=== PATIENT | female | born 1945 | race Caucasian/White ===

== ENCOUNTER 2019-05-16 23:35 | Emergency (ER) | payer OTHER, BC ==
[2019-05-16 23:50] VITALS: PULSE 79; TEMP 97.9; BMI 40.3
--- NOTE | 2019-05-17 00:07 | PDOC ---
Attending Attestation - Resident Resident Name: GumeWilliam mckenna - ED Attending Attestation I have performed the following: I have examined & evaluated the patient, The case was reviewed & discussed with the resident, I agree w/resident's findings & plan - HPI HPI: 05/17/19 01:06 see resident hpi - Physicial Exam PE: 05/17/19 01:06 agree with resident exam - Medical Decision Making 05/17/19 01:06 73-year-old female with bleeding from a left posterior calf varicose vein currently on Effient Bleeding rapidly controlled with Surgicel and Coban wrap Patient neurovascularly intact with palpable distal pulses post wound care Patient denies specific complaints at this time She is somewhat tired because she took Ativan prior to the incident which she normally does before bed She will be discharged in the care of family and will be sleeping at their house this evening Patient escorted to her car, all parties were given fall precautions Patient has agreed to follow-up with her regular physician in the next 1 to 2 days for CBC which he preferred not to wait for any emergency department. Blood pressure stable prior to discharge.
--- NOTE | 2019-05-17 00:42 | PDOC ---
History of Present Illness - General Chief Complaint: Laceration Stated Complaint: BLEEDING Time Seen by Provider: 05/17/19 00:07 History Source: Patient Exam Limitations: No Limitations - History of Present Illness Initial Comments: 05/17/19 00:52 73 yo female pmh angina (on antiplatelet medication) and varicose veins presents to the ED via EMS for bleeding varicose veins. Pt states she was itching her leg tonight and had excessive bleeding. Pt admitted Past History - Past Medical History Allergies/Adverse Reactions: Allergies Allergy/AdvReac Type Severity Reaction Status Date / Time clopidogrel bisulfate Allergy Verified 05/16/19 23:46 [From Plavix] Penicillins Allergy Verified 05/16/19 23:46 iv contrast Allergy Uncoded 05/16/19 23:46 Home Medications: Ambulatory Orders Amlodipine Besylate [Norvasc -] 10 mg PO DAILY 01/19/13 Aspirin 81 mg PO DAILY 01/19/13 Atorvastatin Calcium [Lipitor] 40 mg PO DAILY 01/19/13 Citalopram Hydrobromide [Celexa] 20 mg PO DAILY 01/19/13 Hydrochlorothiazide [Hctz -] 25 mg PO DAILY 01/19/13 Isosorbide Mononitrate 120 mg PO DAILY 01/19/13 Levothyroxine [Synthroid] 175 mcg PO DAILY 01/19/13 Liraglutide [Victoza] 1.2 mg SQ DAILY@0700 01/19/13 Losartan Potassium 50 mg PO DAILY 01/19/13 Metoprolol Tartrate [Lopressor] 50 mg PO DAILY 01/19/13 Montelukast Na [Singulair] 10 mg PO HS 01/19/13 Prasugrel Hydrochloride [Effient] 10 mg PO DAILY 01/19/13 Zolpidem Tartrate [Ambien] 5 mg PO HS 01/19/13 Cardiac Disorders: Yes (angina) COPD: Yes Diabetes: Yes HTN: Yes Thyroid Disease: Yes - Surgical History Appendectomy: Yes Cardiac Surgery: Yes (8 cardiac stents) GI Surgery: Yes (farrukh) - Psycho Social/Smoking Cessation Hx Smoking Status: Yes Smoking History: Never smoked Number of Cigarettes Smoked Daily: 0 *Physical Exam - Vital Signs Last Vital Signs Temp Pulse Resp BP Pulse Ox 97.9 F 79 16 110/71 99 05/16/19 23:47 05/16/19 23:47 05/16/19 23:47 05/16/19 23:47 05/16/19 23:47 Discharge - Discharge Information Problems reviewed: Yes Clinical Impression/Diagnosis: Bleeding from varicose vein Condition: Stable Disposition: HOME - Admission No - Follow up/Referral Referrals: Anh Torres [Primary Care Provider] - Brennan Castro DO [Staff Physician] - - Patient Discharge Instructions Patient Printed Discharge Instructions: DI for Laceration Repair Additional Instructions: Please se your Primary Doctor tomorrow morning and have blood work to assess for possible anemia as soon as possible. Do not take any more anti platelet medicine until you see your doctors and discuss it with them. Return to the ER for new or concerning symptoms including but not limited to: weakness, dizziness , continued bleeding, loss of strength or sensation to the rigt lower leg. Thank you - Post Discharge Activity
[2019-05-17 00:52] VITALS: BP 132/69
== END 2019-05-17 00:52 | disposition home or self-care (01) ==
LOC: JER 23:35
PROC: 0HQKXZZ Repair Right Lower Leg Skin, External Approach (ICD-10-PCS; principal; 2019-05-16)
DX: I86.8 Varicose veins of other specified sites (principal); I20.9 Angina pectoris, unspecified; Z88.0 Allergy status to penicillin; Z88.8 Allergy status to other drugs, medicaments and biological substances; Z91.041 Radiographic dye allergy status; J44.9 Chronic obstructive pulmonary disease, unspecified; E11.9 Type 2 diabetes mellitus without complications; I10 Essential (primary) hypertension; E07.9 Disorder of thyroid, unspecified; Z95.5 Presence of coronary angioplasty implant and graft
CPT/HCPCS: 99282-25

== ENCOUNTER 2020-04-28 14:22 | Emergency (ER) | payer OTHER, BC | END 2020-04-28 15:17 | disposition home or self-care (01) | LOC: JVIRT 14:22 | DX: Z03.818 Encounter for observation for suspected exposure to other biological agents ruled out (principal); G44.89 Other headache syndrome; R11.0 Nausea | CPT/HCPCS: C9803; Q3014-GT; U0003 ==

== ENCOUNTER 2023-02-02 14:57 | Inpatient (IN) | payer OTHER, BC ==
[2023-02-02 15:13] VITALS: BMI 38.0
[2023-02-02] MEDS ORDERED: ACETAMINOPHEN 500 MG TABLET (FP) PO ONE (16:06)
[2023-02-02] MEDS ORDERED: ACETAMINOPHEN 325 MG TABLET (FP) ONE (16:36)
[2023-02-02 17:12] LABS: BASO % 0.1 % (0-2.0); EOS % 1.8 % (0-4.5); HEMATOCRIT 37.5 % (32.4-45.2); HEMOGLOBIN 12.4 GM/dL (10.7-15.3); LYMPH % 19.2 % (8-40); MCH 28.2 pg (25.7-33.7); MCHC 33.2 g/dl (32.0-36.0); MEAN CELL VOLUME 84.9 fl (80-96); MEAN PLT VOLUME 8.4 fl (7.5-11.1); MONO % 12.5 % (3.8-10.2); NEUT % 66.4 % (42.8-82.8); PLATELET COUNT 185 10^3/uL (134-434); RBC 4.41 M/mm3 (3.60-5.2); RDW 14.5 % (11.6-15.6)
[2023-02-02] MEDS ORDERED: ASPIRIN 81 MG CHEWABLE TABLETS PO ONE (17:24)
[2023-02-02 17:25] LABS: INR 1.19 (0.83-1.09); PROTHROMBIN TIME (PATIENT) 13.8 SEC (9.7-13.0)
[2023-02-02 17:27] LABS: ACTIVATED PTT 36.8 SECONDS (25.2-36.5)
[2023-02-02] MEDS ORDERED: ASPIRIN 81 MG CHEWABLE TABLETS ONE (17:27)
[2023-02-02 17:33] LABS: POTASSIUM 3.7 mmol/L (3.5-5.1)
[2023-02-02 17:35] LABS: ALBUMIN 3.2 g/dl (3.4-5.0); CALCIUM 8.4 mg/dL (8.5-10.1); MAGNESIUM 1.6 mg/dL (1.8-2.4)
[2023-02-02 17:38] LABS: CREATININE 1.1 mg/dL (0.55-1.3)
[2023-02-02 17:40] LABS: BILIRUBIN,TOTAL 0.9 mg/dL (0.2-1); TOT PROT 6.4 g/dl (6.4-8.2)
[2023-02-02 17:50] LABS: URINE APPEARANCE CLEAR; URINE BILIRUBIN NEGATIVE (NEGATIVE); URINE COLOR YELLOW; URINE GLUCOSE (UA) NEGATIVE (NEGATIVE); URINE KETONE NEGATIVE (NEGATIVE); URINE LEUK ESTERASE NEGATIVE (NEGATIVE); URINE NITRITE NEGATIVE (NEGATIVE); URINE PROTEIN NEGATIVE (NEGATIVE)
[2023-02-02] MEDS ORDERED: MAGNESIUM SULFATE IN WATER 2 GM/50 ML IVPB IVPB ONE ×2 (18:25→19:55)
[2023-02-02] MEDS ORDERED: POTASSIUM CHLORIDE TABS 20 MEQ TABLET.ER (FP) PO ONE (18:30)
[2023-02-02] MEDS ORDERED: methylPREDNISolone NA SUCC 125 MG/2 ML VIAL IVPUSH ONE (18:46)
[2023-02-02] MEDS ORDERED: FAMOTIDINE 20 MG/50 ML IVPB 20 MG/50 ML MG IVPB ONE ×2 (18:47→19:54)
[2023-02-02] MEDS ORDERED: methylPREDNISolone NA SUCC 125 MG/2 ML VIAL ONE (18:49)
[2023-02-02] MEDS ORDERED: POTASSIUM CHLORIDE ORAL LIQUID 20 MEQ/15 ML ONE (19:54)
[2023-02-02] MEDS ORDERED: MAGNESIUM 1GM/D5W - 1 GM/100 ML IVPB IVPB ONE (19:54)
[2023-02-02] MEDS ORDERED: LORazepam 0.5 MG TABLET PO PRN (21:43)
[2023-02-02] MEDS ORDERED: NITROGLYCERIN SUBLINGUAL 1/150 0.4 MG TAB SL PRN (21:43)
[2023-02-02] MEDS ORDERED: ERTAPENEM SODIUM 1 GM in SODIUM CHLORIDE 50 ML IVPB SCH (22:00)
[2023-02-02] MEDS ORDERED: SULFAMETHOXAZOLE 80 MG/TRIMETHOPRIM 16 MG/ML VIAL IVPB SCH (22:00)
[2023-02-02] MEDS ORDERED: ZOLPIDEM TARTRATE 5 MG TABLET PO PRN (22:00)
[2023-02-02] MEDS ORDERED: RANOLAZINE E.R. 500 MG TABLET (FP) ONE (23:17)
[2023-02-02] MEDS: INSULIN SLIDING SCALE (NOVOLOG) 1 VIAL SQ SCH (23:26)
[2023-02-02] MEDS: RANOLAZINE E.R. 500 MG TABLET (FP) PO SCH (23:26)
[2023-02-03] MEDS ORDERED: LEVOTHYROXINE NA 75 MCG TABLET (FP) ONE (06:40)
[2023-02-03] MEDS: LEVOTHYROXINE 100 MCG, LEVOTHYROXINE 75 MCG PO SCH (06:46)
[2023-02-03] MEDS: INSULIN SLIDING SCALE (NOVOLOG) 1 VIAL SQ SCH ×4 (06:46→22:19)
[2023-02-03 08:45] LABS: BASO % 0.1 % (0-2.0); HEMATOCRIT 39.8 % (32.4-45.2); HEMOGLOBIN 13.6 GM/dL (10.7-15.3); LYMPH % 9.8 % (8-40); MCH 28.7 pg (25.7-33.7); MCHC 34.2 g/dl (32.0-36.0); MEAN PLT VOLUME 8.3 fl (7.5-11.1); MONO % 1.3 % (3.8-10.2); NEUT % 88.8 % (42.8-82.8); PLATELET COUNT 187 10^3/uL (134-434); RBC 4.74 M/mm3 (3.60-5.2); RDW 14.8 % (11.6-15.6); WHITE BLOOD COUNT 7.3 K/mm3 (4.0-10.0)
[2023-02-03 09:04] LABS: POTASSIUM 4.1 mmol/L (3.5-5.1)
[2023-02-03 09:08] LABS: MAGNESIUM 1.9 mg/dL (1.8-2.4)
[2023-02-03 09:11] LABS: ALBUMIN 3.4 g/dl (3.4-5.0); BLOOD UREA NITROGEN 16.7 mg/dL (7-18); CREATININE 1.3 mg/dL (0.55-1.3)
[2023-02-03 09:12] LABS: BILIRUBIN,TOTAL 0.8 mg/dL (0.2-1)
[2023-02-03 09:13] LABS: PHOSPHOROUS 2.5 mg/dL (2.5-4.9)
[2023-02-03] MEDS: CHOLECALCIFEROL (VIT D3) 1,000 UNIT (25 MCG) TABLET PO SCH (09:23)
[2023-02-03] MEDS: ISOSORBIDE MONONITRATE 60 MG TAB.SR.24H (FP) PO SCH ×2 (09:23→22:14)
[2023-02-03] MEDS: ASPIRIN 81 MG CHEWABLE TABLETS PO SCH (09:23)
[2023-02-03] MEDS: PRASUGREL HCL 10 MG TAB PO SCH (09:24)
[2023-02-03] MEDS: DULoxetine HCL 30 MG CAPSULE.DR PO SCH (09:24)
[2023-02-03] MEDS: ENOXAPARIN NA (PORCINE) 40 MG/0.4 ML DISP.SYRIN SQ SCH (09:25)
[2023-02-03] MEDS: RANOLAZINE E.R. 500 MG TABLET (FP) PO SCH ×2 (09:25→22:14)
[2023-02-03] MEDS ORDERED: REGADENOSON 0.4 MG/5 ML PRE-FILLED SYRINGE IVPUSH ONE ×2 (09:45→11:51)
[2023-02-03] MEDS ORDERED: PATIENT'S OWN MEDICATION (NON-FORMULARY) (Levothyroxine [Synthroid -] 175 MCG Tablet) PO SCH (10:00)
[2023-02-03] MEDS ORDERED: ATORVASTATIN CA 80 MG TABLET (FP) PO SCH (10:00)
[2023-02-03] MEDS ORDERED: PATIENT'S OWN MEDICATION (NON-FORMULARY) (Dulaglutide [Trulicity] 1.5 MG/0.5 ML Pen.Injctr SQ SCH (10:00)
[2023-02-03] MEDS: POTASSIUM CHLORIDE TABS 10 MEQ TABLET.ER (FP) PO SCH (11:14)
[2023-02-03] MEDS ORDERED: NITROGLYCERIN SUBLINGUAL 1/150 0.4 MG TAB SL ONE (12:20)
[2023-02-03] MEDS ORDERED: NITROGLYCERIN SUBLINGUAL 1/150 0.4 MG TAB ONE ×2 (12:25→13:07)
[2023-02-03] MEDS: CEFTRIAXONE 1 GM in DEXTROSE 5%-WATER - 50 ML IVPB SCH (13:54)
[2023-02-03] MEDS: ATORVASTATIN CA 80 MG TABLET (FP) PO SCH (22:14)
[2023-02-03] MEDS: metoPROLOL SUCCINATE 25 MG TAB.SR.24H (FP) PO SCH (22:14)
[2023-02-04] MEDS: LEVOTHYROXINE 100 MCG, LEVOTHYROXINE 75 MCG PO SCH (06:05)
[2023-02-04] MEDS: INSULIN SLIDING SCALE (NOVOLOG) 1 VIAL SQ SCH ×4 (06:05→21:30)
[2023-02-04] MEDS: DULoxetine HCL 30 MG CAPSULE.DR PO SCH (10:05)
[2023-02-04] MEDS: ASPIRIN 81 MG CHEWABLE TABLETS PO SCH (10:05)
[2023-02-04] MEDS: metoPROLOL SUCCINATE 25 MG TAB.SR.24H (FP) PO SCH ×2 (10:05→21:32)
[2023-02-04] MEDS: RANOLAZINE E.R. 500 MG TABLET (FP) PO SCH ×2 (10:05→21:31)
[2023-02-04] MEDS: PRASUGREL HCL 10 MG TAB PO SCH (10:06)
[2023-02-04] MEDS: ISOSORBIDE MONONITRATE 60 MG TAB.SR.24H (FP) PO SCH ×2 (10:06→21:31)
[2023-02-04] MEDS: CHOLECALCIFEROL (VIT D3) 1,000 UNIT (25 MCG) TABLET PO SCH (10:06)
[2023-02-04] MEDS: POTASSIUM CHLORIDE TABS 10 MEQ TABLET.ER (FP) PO SCH (10:06)
[2023-02-04] MEDS: CEFTRIAXONE 1 GM in DEXTROSE 5%-WATER - 50 ML IVPB SCH (10:06)
[2023-02-04] MEDS: ENOXAPARIN NA (PORCINE) 40 MG/0.4 ML DISP.SYRIN SQ SCH (10:07)
[2023-02-04 20:21] VITALS: BP 123/69; PULSE 69; RESP 16; TEMP 97.5
[2023-02-04] MEDS: ATORVASTATIN CA 80 MG TABLET (FP) PO SCH (21:31)
[2023-02-04] MEDS ORDERED: HEPARIN NA (PORCINE) 5,000 UNITS/ML 1ML VIAL SQ SCH (22:00)
== END 2023-02-04 22:30 | disposition short-term general hospital (02) | DRG 313 ==
LOC: JER 14:57 → JERBED 19:55 → J4S 02-03 00:31
PROVIDERS: ADMIT Internal Medicine; ATTEND Internal Medicine
DX: R07.89 Other chest pain (principal); K57.32 Diverticulitis of large intestine without perforation or abscess without bleeding; I25.110 Atherosclerotic heart disease of native coronary artery with unstable angina pectoris; I10 Essential (primary) hypertension; E11.9 Type 2 diabetes mellitus without complications; E03.9 Hypothyroidism, unspecified; E78.5 Hyperlipidemia, unspecified; E83.42 Hypomagnesemia; E66.9 Obesity, unspecified; Z68.38 Body mass index [BMI] 38.0-38.9, adult; F41.9 Anxiety disorder, unspecified; Z88.0 Allergy status to penicillin; Z96.653 Presence of artificial knee joint, bilateral; Z95.5 Presence of coronary angioplasty implant and graft
CPT/HCPCS: 0241U-QW; 36415; 71045-TC-FY; 71275-TC; 74174-TC; 78452-TC; 80053; 80061; 81003; 82962; 83605; 83735; 84100; 84443; 84484; 85025; 85610; 85730; 87086; 93005; 93010; 93017; 99285-25; A9502; J1644; J2785; Q9967

== ENCOUNTER 2023-03-31 16:08 | Emergency (ER) | payer OTHER, BC ==
[2023-03-31 16:21] VITALS: RESP 22; TEMP 97.9; BMI 37.4
[2023-03-31] MEDS ORDERED: ONDANSETRON 4 MG/2 ML VIAL IVPUSH ONE (17:13)
[2023-03-31] MEDS ORDERED: ACETAMINOPHEN 1000 MG/100 ML BAG IVPB ONE (17:14)
[2023-03-31] MEDS ORDERED: ONDANSETRON 4 MG/2 ML VIAL ONE (17:38)
[2023-03-31] MEDS ORDERED: ACETAMINOPHEN INJECTION 100 ML IVPB ONE (17:38)
[2023-03-31 17:52] LABS: BASO % 0.3 % (0-2.0); EOS % 1.9 % (0-4.5); HEMOGLOBIN 12.5 GM/dL (10.7-15.3); LYMPH % 15.4 % (8-40); MCH 28.2 pg (25.7-33.7); MEAN CELL VOLUME 85.3 fl (80-96); MEAN PLT VOLUME 8.3 fl (7.5-11.1); NEUT % 72.4 % (42.8-82.8); PLATELET COUNT 213 10^3/uL (134-434); RBC 4.45 M/mm3 (3.60-5.2); WHITE BLOOD COUNT 10.1 K/mm3 (4.0-10.0)
[2023-03-31 18:00] LABS: INR 1.04 (0.83-1.09); PROTHROMBIN TIME (PATIENT) 12.1 SEC (9.7-13.0)
[2023-03-31 18:03] LABS: ACTIVATED PTT 38.7 SECONDS (25.2-36.5)
[2023-03-31 18:25] LABS: POTASSIUM 3.6 mmol/L (3.5-5.1)
[2023-03-31 18:27] LABS: ALBUMIN 3.4 g/dl (3.4-5.0); CALCIUM 8.5 mg/dL (8.5-10.1)
[2023-03-31 18:28] LABS: BLOOD UREA NITROGEN 17.1 mg/dL (7-18); MAGNESIUM 1.3 mg/dL (1.8-2.4)
[2023-03-31 18:30] LABS: CREATININE 1.2 mg/dL (0.55-1.3)
[2023-03-31 18:32] LABS: BILIRUBIN,TOTAL 0.5 mg/dL (0.2-1); TOT PROT 6.5 g/dl (6.4-8.2)
[2023-03-31 22:00] VITALS: BP 123/56; PULSE 72
[2023-03-31] MEDS ORDERED: metroNIDAZOLE 500 MG TABLET PO ONE (23:39)
[2023-03-31] MEDS ORDERED: CIPROFLOXACIN 500 MG TABLET (RESTRICTED TO ID) PO ONE (23:39)
[2023-03-31] MEDS ORDERED: metroNIDAZOLE 250 MG TABLET ONE (23:48)
== END 2023-04-01 00:09 | disposition home or self-care (01) ==
LOC: JER 16:08
PROC: 3E033NZ Introduction of Analgesics, Hypnotics, Sedatives into Peripheral Vein, Percutaneous Approach (ICD-10-PCS; principal; 2023-03-31)
PROC: 3E033GC Introduction of Other Therapeutic Substance into Peripheral Vein, Percutaneous Approach (ICD-10-PCS; 2023-03-31)
DX: R10.32 Left lower quadrant pain (principal); R06.02 Shortness of breath; K57.92 Diverticulitis of intestine, part unspecified, without perforation or abscess without bleeding; R11.2 Nausea with vomiting, unspecified
CPT/HCPCS: 36415; 71046-TC-FY; 74176-TC; 80053; 83605; 83690; 83735; 83880; 84484; 85025; 85610; 85730; 86850; 86900; 86901; 93005; 93010; 99285-25

== ENCOUNTER 2023-04-25 10:32 | Inpatient (IN) | payer OTHER, BC ==
[2023-04-25] MEDS ORDERED: ONDANSETRON 4 MG/2 ML VIAL IVPB ONE (11:27)
[2023-04-25] MEDS ORDERED: ACETAMINOPHEN 1000 MG/100 ML BAG IVPB ONE (11:27)
[2023-04-25] MEDS ORDERED: ACETAMINOPHEN INJECTION 100 ML IVPB ONE (11:57)
[2023-04-25] MEDS ORDERED: ONDANSETRON 4 MG/2 ML VIAL ONE (11:57)
[2023-04-25] MEDS ORDERED: SODIUM CHLORIDE 1,000 ML IV ONE (12:03)
[2023-04-25 12:12] LABS: HEMATOCRIT 41.1 % (32.4-45.2); HEMOGLOBIN 13.8 G/dL (10.7-15.3); MCH 29.1 pg (25.7-33.7); MCHC 33.5 g/dl (32.0-36.0); MEAN CELL VOLUME 86.7 fl (80-96); MEAN PLT VOLUME 8.1 fl (7.5-11.1); PLATELET COUNT 243.8 10^3/uL (134-434); RBC 4.74 10^6/uL (3.60-5.2); RDW 15.7 % (11.6-15.6); WHITE BLOOD COUNT 8.3 10^3/uL (4.0-10.8)
[2023-04-25 12:16] LABS: PLATELET ESTIMATE ADEQUATE
[2023-04-25 12:20] LABS: INR 1.16 (0.83-1.09); PROTHROMBIN TIME (PATIENT) 13.4 SEC (9.7-13.0)
[2023-04-25 12:34] LABS: ALBUMIN 4.1 g/dl (3.4-5.0); BILIRUBIN,TOTAL 0.7 mg/dl (0.2-1); CALCIUM 9.3 mg/dl (8.5-10.1); CREATININE 1.2 mg/dl (0.6-1.3); POTASSIUM 3.7 mmol/L (3.5-5.1); TOT PROT 6.4 g/dl (6.4-8.2)
[2023-04-25] MEDS ORDERED: morphine CARPU-JECT 2 MG/1 ML DISP.SYRIN IVPUSH ONE (14:01)
[2023-04-25] MEDS ORDERED: PIPERACILLIN/TAZOB 4.5 GM 4.5 GM in DEXTROSE 5%-WATER 100 ML IVPB ONE (15:27)
[2023-04-25] MEDS ORDERED: morphine CARPU-JECT 4 MG/1 ML DISP.SYRIN IVPUSH ONE (15:27)
[2023-04-25] MEDS ORDERED: morphine SULFATE 4 MG/ML VIAL ONE (16:11)
[2023-04-25] MEDS ORDERED: PIPERACILLIN/TAZOBACTAM 4.5 GM VIAL IVPB ONE (16:11)
[2023-04-25 18:31] VITALS: BMI 35.4
[2023-04-26] MEDS ORDERED: morphine SULFATE 4 MG/ML VIAL IVPUSH PRN (01:12)
[2023-04-26] MEDS: PIPERACILLIN/TAZOB 3.375 GM 3.375 GM in DEXTROSE 5%-WATER - 50 ML IVPB SCH ×4 (01:20→18:30)
[2023-04-26] MEDS: LACTATED RINGERS SOLUTION 1,000 ML IV SCH (01:21)
[2023-04-26] MEDS: LEVOTHYROXINE NA 150 MCG TABLET PO SCH (06:11)
[2023-04-26] MEDS ORDERED: traMADol HCL 50 MG TABLET PO PRN (07:26)
[2023-04-26 09:03] LABS: ALBUMIN 3.7 g/dl (3.4-5.0); BILIRUBIN,TOTAL 0.7 mg/dl (0.2-1); CREATININE 1.2 mg/dl (0.6-1.3); MAGNESIUM 1.7 mg/dL (1.8-2.4); PHOSPHOROUS 4.1 (2.5-4.9); POTASSIUM 3.7 mmol/L (3.5-5.1); TOT PROT 5.7 g/dl (6.4-8.2)
[2023-04-26 09:45] LABS: BASO % 0.6 % (0-2.0); EOS % 4.1 % (0-4.5); HEMATOCRIT 36.9 % (32.4-45.2); HEMOGLOBIN 12.2 GM/dL (10.7-15.3); LYMPH % 20.4 % (8-40); MCH 28.5 pg (25.7-33.7); MEAN CELL VOLUME 86.5 fl (80-96); MONO % 13.5 % (3.8-10.2); NEUT % 61.4 % (42.8-82.8); PLATELET COUNT 248 10^3/uL (134-434); RBC 4.26 M/mm3 (3.60-5.2); RDW 15.1 % (11.6-15.6); WHITE BLOOD COUNT 6.6 K/mm3 (4.0-10.0)
[2023-04-26] MEDS: HYDROCHLOROTHIAZIDE 25 MG TABLET (FP) PO SCH (09:55)
[2023-04-26] MEDS: LOSARTAN POTASSIUM 50 MG TABLET PO SCH (09:55)
[2023-04-26] MEDS: ISOSORBIDE MONONITRATE 60 MG TAB.SR.24H (FP) PO SCH ×2 (09:55→21:49)
[2023-04-26] MEDS: metoPROLOL SUCCINATE 25 MG TAB.SR.24H (FP) PO SCH ×2 (09:55→21:50)
[2023-04-26] MEDS: ENOXAPARIN NA (PORCINE) 40 MG/0.4 ML DISP.SYRIN SQ SCH (09:55)
[2023-04-26] MEDS: ASPIRIN 81 MG CHEWABLE TABLETS PO SCH (09:56)
[2023-04-26] MEDS: DULoxetine HCL 30 MG CAPSULE.DR PO SCH (09:56)
[2023-04-26] MEDS: RANOLAZINE E.R. 500 MG TABLET (FP) PO SCH ×2 (09:56→21:49)
[2023-04-26] MEDS ORDERED: PATIENT'S OWN MEDICATION (NON-FORMULARY) (Cyclosporine [Restasis] 1 EACH Droperette) OU SCH (10:00)
[2023-04-26] MEDS: LIDOCAINE 5% TOPICAL PATCH TP SCH (13:37)
[2023-04-26] MEDS ORDERED: PRASUGREL HCL 10 MG TAB PO SCH (14:00)
[2023-04-26] MEDS: PRASUGREL HCL 10 MG TAB PO SCH (15:37)
[2023-04-26] MEDS: ACETAMINOPHEN 325 MG TABLET (FP) PO PRN (21:49)
[2023-04-26] MEDS: ZOLPIDEM TARTRATE 5 MG TABLET PO PRN (21:49)
[2023-04-26] MEDS: ATORVASTATIN CA 40 MG TABLET (FP) PO SCH (21:50)
[2023-04-26] MEDS: CEFOXITIN SODIUM 2 GM in DEXTROSE 5%-WATER 100 ML IVPB SCH (22:55)
[2023-04-27] MEDS: CEFOXITIN SODIUM 2 GM in DEXTROSE 5%-WATER 100 ML IVPB SCH ×4 (04:07→21:26)
[2023-04-27] MEDS: LEVOTHYROXINE NA 150 MCG TABLET PO SCH (06:43)
[2023-04-27] MEDS: LIDOCAINE PATCH REMOVAL MC SCH ×2 (06:56→22:10)
[2023-04-27 08:24] LABS: HEMATOCRIT 37.1 % (32.4-45.2); MCH 28.5 pg (25.7-33.7); MCHC 32.4 g/dl (32.0-36.0); MEAN CELL VOLUME 87.9 fl (80-96); MEAN PLT VOLUME 8.2 fl (7.5-11.1); PLATELET COUNT 235.6 10^3/uL (134-434); RBC 4.22 10^6/uL (3.60-5.2); RDW 15.3 % (11.6-15.6); WHITE BLOOD COUNT 6.2 10^3/uL (4.0-10.8)
[2023-04-27 08:43] LABS: ALBUMIN 3.6 g/dl (3.4-5.0); BILIRUBIN,TOTAL 0.7 mg/dl (0.2-1); CALCIUM 8.9 mg/dl (8.5-10.1); CREATININE 1.2 mg/dl (0.6-1.3); MAGNESIUM 1.6 mg/dL (1.8-2.4); PHOSPHOROUS 3.6 (2.5-4.9); POTASSIUM 3.7 mmol/L (3.5-5.1); TOT PROT 5.5 g/dl (6.4-8.2)
[2023-04-27] MEDS: PRASUGREL HCL 10 MG TAB PO SCH (10:01)
[2023-04-27] MEDS: LIDOCAINE 5% TOPICAL PATCH TP SCH (10:24)
[2023-04-27] MEDS: ENOXAPARIN NA (PORCINE) 40 MG/0.4 ML DISP.SYRIN SQ SCH (10:24)
[2023-04-27] MEDS: LOSARTAN POTASSIUM 50 MG TABLET PO SCH (10:25)
[2023-04-27] MEDS: ISOSORBIDE MONONITRATE 60 MG TAB.SR.24H (FP) PO SCH ×2 (10:26→21:24)
[2023-04-27] MEDS: metoPROLOL SUCCINATE 25 MG TAB.SR.24H (FP) PO SCH ×2 (10:26→21:23)
[2023-04-27] MEDS: RANOLAZINE E.R. 500 MG TABLET (FP) PO SCH ×2 (10:26→21:24)
[2023-04-27] MEDS: ASPIRIN 81 MG CHEWABLE TABLETS PO SCH (10:26)
[2023-04-27] MEDS: HYDROCHLOROTHIAZIDE 25 MG TABLET (FP) PO SCH (10:27)
[2023-04-27] MEDS: DULoxetine HCL 30 MG CAPSULE.DR PO SCH (10:27)
[2023-04-27] MEDS: LACTATED RINGERS SOLUTION 1,000 ML IV SCH (11:23)
[2023-04-27] MEDS: ATORVASTATIN CA 40 MG TABLET (FP) PO SCH (21:24)
[2023-04-27] MEDS: ACETAMINOPHEN 325 MG TABLET (FP) PO PRN (21:24)
[2023-04-27] MEDS: ZOLPIDEM TARTRATE 5 MG TABLET PO PRN (21:25)
[2023-04-28] MEDS: CEFOXITIN SODIUM 2 GM in DEXTROSE 5%-WATER 100 ML IVPB SCH ×4 (03:10→21:16)
[2023-04-28] MEDS: LEVOTHYROXINE NA 150 MCG TABLET PO SCH (06:59)
[2023-04-28 07:49] LABS: ALBUMIN 3.5 g/dl (3.4-5.0); BILIRUBIN,TOTAL 0.7 mg/dl (0.2-1); CALCIUM 8.7 mg/dl (8.5-10.1); CREATININE 1.2 mg/dl (0.6-1.3); POTASSIUM 3.6 mmol/L (3.5-5.1); TOT PROT 5.3 g/dl (6.4-8.2)
[2023-04-28] MEDS: HYDROCHLOROTHIAZIDE 25 MG TABLET (FP) PO SCH (09:47)
[2023-04-28] MEDS: RANOLAZINE E.R. 500 MG TABLET (FP) PO SCH ×2 (09:47→21:17)
[2023-04-28] MEDS: LOSARTAN POTASSIUM 50 MG TABLET PO SCH (09:47)
[2023-04-28] MEDS: metoPROLOL SUCCINATE 25 MG TAB.SR.24H (FP) PO SCH ×2 (09:47→21:17)
[2023-04-28] MEDS: DULoxetine HCL 30 MG CAPSULE.DR PO SCH (09:47)
[2023-04-28] MEDS: ASPIRIN 81 MG CHEWABLE TABLETS PO SCH (09:47)
[2023-04-28] MEDS: ISOSORBIDE MONONITRATE 60 MG TAB.SR.24H (FP) PO SCH ×2 (09:47→21:17)
[2023-04-28] MEDS: PRASUGREL HCL 10 MG TAB PO SCH (09:48)
[2023-04-28] MEDS: LIDOCAINE 5% TOPICAL PATCH TP SCH (09:48)
[2023-04-28] MEDS: ENOXAPARIN NA (PORCINE) 40 MG/0.4 ML DISP.SYRIN SQ SCH (09:49)
[2023-04-28 10:14] LABS: BASO % 0.6 % (0-2.0); EOS % 5.4 % (0-4.5); HEMATOCRIT 34.9 % (32.4-45.2); HEMOGLOBIN 11.3 GM/dL (10.7-15.3); LYMPH % 25.4 % (8-40); MCH 27.8 pg (25.7-33.7); MCHC 32.4 g/dl (32.0-36.0); MEAN CELL VOLUME 85.7 fl (80-96); MEAN PLT VOLUME 7.9 fl (7.5-11.1); MONO % 14.4 % (3.8-10.2); NEUT % 54.2 % (42.8-82.8); PLATELET COUNT 233 10^3/uL (134-434); RBC 4.07 M/mm3 (3.60-5.2); RDW 14.8 % (11.6-15.6); WHITE BLOOD COUNT 6.5 K/mm3 (4.0-10.0)
[2023-04-28] MEDS: LACTATED RINGERS SOLUTION 1,000 ML IV SCH ×2 (17:54)
[2023-04-28] MEDS: LIDOCAINE PATCH REMOVAL MC SCH (21:17)
[2023-04-28] MEDS: ATORVASTATIN CA 40 MG TABLET (FP) PO SCH (21:17)
[2023-04-28] MEDS: ZOLPIDEM TARTRATE 5 MG TABLET PO PRN (21:17)
[2023-04-29] MEDS: CEFOXITIN SODIUM 2 GM in DEXTROSE 5%-WATER 100 ML IVPB SCH ×4 (03:14→21:26)
[2023-04-29] MEDS: LEVOTHYROXINE NA 150 MCG TABLET PO SCH (06:39)
[2023-04-29] MEDS: LOSARTAN POTASSIUM 50 MG TABLET PO SCH (09:27)
[2023-04-29] MEDS: LIDOCAINE 5% TOPICAL PATCH TP SCH (09:27)
[2023-04-29] MEDS: ASPIRIN 81 MG CHEWABLE TABLETS PO SCH (09:27)
[2023-04-29] MEDS: PRASUGREL HCL 10 MG TAB PO SCH (09:28)
[2023-04-29] MEDS: RANOLAZINE E.R. 500 MG TABLET (FP) PO SCH ×2 (09:28→21:28)
[2023-04-29] MEDS: ISOSORBIDE MONONITRATE 60 MG TAB.SR.24H (FP) PO SCH ×2 (09:28→21:27)
[2023-04-29] MEDS: metoPROLOL SUCCINATE 25 MG TAB.SR.24H (FP) PO SCH ×2 (09:28→21:28)
[2023-04-29] MEDS: DULoxetine HCL 30 MG CAPSULE.DR PO SCH (09:28)
[2023-04-29] MEDS: ENOXAPARIN NA (PORCINE) 40 MG/0.4 ML DISP.SYRIN SQ SCH (09:28)
[2023-04-29] MEDS: HYDROCHLOROTHIAZIDE 25 MG TABLET (FP) PO SCH (09:28)
[2023-04-29] MEDS: ATORVASTATIN CA 40 MG TABLET (FP) PO SCH (21:28)
[2023-04-29] MEDS: LIDOCAINE PATCH REMOVAL MC SCH (21:28)
[2023-04-30] MEDS: CEFOXITIN SODIUM 2 GM in DEXTROSE 5%-WATER 100 ML IVPB SCH ×2 (02:07→09:48)
[2023-04-30] MEDS: LEVOTHYROXINE NA 150 MCG TABLET PO SCH (06:07)
[2023-04-30 06:41] VITALS: RESP 16
[2023-04-30] MEDS: LIDOCAINE 5% TOPICAL PATCH TP SCH (09:47)
[2023-04-30] MEDS: ENOXAPARIN NA (PORCINE) 40 MG/0.4 ML DISP.SYRIN SQ SCH (09:48)
[2023-04-30] MEDS: ASPIRIN 81 MG CHEWABLE TABLETS PO SCH (09:48)
[2023-04-30] MEDS: RANOLAZINE E.R. 500 MG TABLET (FP) PO SCH (09:49)
[2023-04-30] MEDS: metoPROLOL SUCCINATE 25 MG TAB.SR.24H (FP) PO SCH (09:49)
[2023-04-30] MEDS: PRASUGREL HCL 10 MG TAB PO SCH (09:49)
[2023-04-30] MEDS: ISOSORBIDE MONONITRATE 60 MG TAB.SR.24H (FP) PO SCH (09:49)
[2023-04-30] MEDS: LOSARTAN POTASSIUM 50 MG TABLET PO SCH (09:50)
[2023-04-30] MEDS: HYDROCHLOROTHIAZIDE 25 MG TABLET (FP) PO SCH (09:50)
[2023-04-30] MEDS: DULoxetine HCL 30 MG CAPSULE.DR PO SCH (13:00)
[2023-04-30 15:48] VITALS: BP 120/52; PULSE 70; TEMP 98.1
== END 2023-04-30 13:48 | disposition home or self-care (01) | DRG 392 ==
LOC: FER 10:32 → FM/S 16:33 → OBSVTOIN 04-27 13:30
PROVIDERS: ADMIT Internal Medicine
PROC: 02HV33Z Insertion of Infusion Device into Superior Vena Cava, Percutaneous Approach (ICD-10-PCS; principal; 2023-04-28)
PROC: B548ZZA Ultrasonography of Superior Vena Cava, Guidance (ICD-10-PCS; 2023-04-28)
DX: K57.32 Diverticulitis of large intestine without perforation or abscess without bleeding (principal); E11.9 Type 2 diabetes mellitus without complications; I10 Essential (primary) hypertension; I25.10 Atherosclerotic heart disease of native coronary artery without angina pectoris; E78.5 Hyperlipidemia, unspecified; R10.32 Left lower quadrant pain; E66.9 Obesity, unspecified; Z68.35 Body mass index [BMI] 35.0-35.9, adult; E03.9 Hypothyroidism, unspecified; Z95.5 Presence of coronary angioplasty implant and graft; I48.91 Unspecified atrial fibrillation
CPT/HCPCS: 36415; 36569; 74177-TC; 77001-TC-FY; 80053; 81003; 81015; 82150; 83605; 83690; 83735; 84100; 84484; 85025; 85027; 85610; 85730; 86140; 86850; 86900; 86901; 87040; 87086; 93005; 99285-25; C1751; G0378

== ENCOUNTER 2023-05-01 11:47 | Day surgery (SDC) | payer OTHER, BC ==
[2023-05-01] MEDS ORDERED: ERTAPENEM SODIUM 1 GM in SODIUM CHLORIDE 50 ML IVPB SCH (12:15)
[2023-05-01 13:07] VITALS: BP 112/56; PULSE 72; RESP 15; TEMP 98
== END 2023-05-01 13:22 | disposition home or self-care (01) ==
LOC: FM/S 11:47 → FINFUSION 11:47
DX: K57.32 Diverticulitis of large intestine without perforation or abscess without bleeding (principal)
CPT/HCPCS: 96365

== ENCOUNTER 2023-05-02 12:03 | Day surgery (SDC) | payer OTHER, BC ==
[2023-05-02] MEDS ORDERED: ERTAPENEM SODIUM 1 GM in SODIUM CHLORIDE 50 ML IVPB ONE (12:30)
[2023-05-02 13:29] VITALS: BP 144/68; PULSE 59; RESP 18; TEMP 98.1
== END 2023-05-02 13:29 | disposition home or self-care (01) ==
LOC: FINFUSION 12:03 → FM/S 12:04 → FINFUSION 13:29
DX: K57.32 Diverticulitis of large intestine without perforation or abscess without bleeding (principal)
CPT/HCPCS: 96365

== ENCOUNTER 2023-05-03 11:33 | Day surgery (SDC) | payer OTHER, BC ==
[2023-05-03] MEDS ORDERED: ERTAPENEM SODIUM 1 GM in DEXTROSE 5%-WATER - 50 ML IVPB ONE (12:00)
[2023-05-03 12:43] VITALS: BP 115/56; PULSE 73; RESP 18; TEMP 98.1
== END 2023-05-03 12:44 | disposition home or self-care (01) ==
LOC: FINFUSION 11:33 → FM/S 11:34 → FINFUSION 12:44
DX: K57.32 Diverticulitis of large intestine without perforation or abscess without bleeding (principal)
CPT/HCPCS: 96365

== ENCOUNTER 2023-05-04 11:50 | Day surgery (SDC) | payer OTHER, BC ==
[2023-05-04] MEDS ORDERED: ERTAPENEM SODIUM 1 GM in SODIUM CHLORIDE 50 ML IVPB ONE (12:30)
[2023-05-04 13:05] VITALS: BP 115/50; PULSE 70; RESP 18; TEMP 98.3
== END 2023-05-04 13:11 | disposition home or self-care (01) ==
LOC: FINFUSION 11:50 → FM/S 11:52 → FINFUSION 13:11
DX: K57.32 Diverticulitis of large intestine without perforation or abscess without bleeding (principal)
CPT/HCPCS: 96365

== ENCOUNTER 2023-05-05 11:13 | Day surgery (SDC) | payer OTHER, BC ==
[2023-05-05] MEDS ORDERED: ERTAPENEM SODIUM 1 GM in SODIUM CHLORIDE 50 ML IVPB ONE (11:45)
[2023-05-05 20:22] VITALS: BP 122/60; PULSE 85; RESP 16; TEMP 98
== END 2023-05-05 14:15 | disposition home or self-care (01) ==
LOC: FINFUSION 11:13 → FM/S 11:14 → FINFUSION 14:15
DX: K57.32 Diverticulitis of large intestine without perforation or abscess without bleeding (principal)
CPT/HCPCS: 96365

== ENCOUNTER 2023-07-22 04:24 | Day surgery (SDC) | payer OTHER, BC ==
[2023-07-19 12:36] VITALS: BMI 35.4
[2023-07-22 12:05] VITALS: TEMP 97.1
[2023-07-22 12:26] VITALS: BP 115/59; PULSE 71; RESP 14
== END 2023-07-22 13:00 | disposition home or self-care (01) ==
LOC: JASU-ENDO 04:24
PROVIDERS: ATTEND Internal Medicine Gastroenterology
PROC: 0DJD8ZZ Inspection of Lower Intestinal Tract, Via Natural or Artificial Opening Endoscopic (ICD-10-PCS; principal; 2023-07-22 11:00)
DX: Z12.11 Encounter for screening for malignant neoplasm of colon (principal); D12.2 Benign neoplasm of ascending colon; D12.3 Benign neoplasm of transverse colon; K55.20 Angiodysplasia of colon without hemorrhage; K57.30 Diverticulosis of large intestine without perforation or abscess without bleeding; E11.9 Type 2 diabetes mellitus without complications; Z79.84 Long term (current) use of oral hypoglycemic drugs; Z79.85 Long-term (current) use of injectable non-insulin antidiabetic drugs; R10.84 Generalized abdominal pain
CPT/HCPCS: 82962

== ENCOUNTER 2024-04-13 05:24 | Day surgery (SDC) | payer OTHER, BC ==
[2024-04-12 11:33] VITALS: BMI 34.4
[2024-04-13 11:29] VITALS: TEMP 97.9
[2024-04-13 12:07] VITALS: RESP 16
[2024-04-13 12:13] VITALS: BP 110/57; PULSE 60
== END 2024-04-13 13:00 | disposition home or self-care (01) ==
LOC: JASU-ENDO 05:24
PROVIDERS: ATTEND Internal Medicine Gastroenterology
PROC: 0DBL8ZX Excision of Transverse Colon, Via Natural or Artificial Opening Endoscopic, Diagnostic (ICD-10-PCS; 2024-04-13)
PROC: 0DBK8ZX Excision of Ascending Colon, Via Natural or Artificial Opening Endoscopic, Diagnostic (ICD-10-PCS; principal; 2024-04-13 10:30)
DX: D12.2 Benign neoplasm of ascending colon (principal); D12.3 Benign neoplasm of transverse colon; K57.30 Diverticulosis of large intestine without perforation or abscess without bleeding; Z86.0100 Personal history of colon polyps, unspecified
CPT/HCPCS: 82962; 88305-TC